=== PATIENT | female | born 1955 | race Caucasian/White ===

== ENCOUNTER → 2025-01-23 10:37 | Outpatient (REF) | payer MEDICARE, OTHER, SELFPAY | LOC: EMG 10:37 | PROVIDERS: ATTENDING PHYSICIAN Internal Medicine Rheumatology; FAMILY PHYSICIAN Family Medicine | DX: M62.81 Muscle weakness (generalized) (principal); R20.0 Anesthesia of skin; R20.9 Unspecified disturbances of skin sensation | CPT/HCPCS: 95886; 95911 ==